=== PATIENT | male | born 1990 | race African-American/Black ===

== ENCOUNTER 2021-09-29 23:38 | Emergency (ER) | payer SELFPAY ==
[~2021-09-29] VITALS: Ht 188 cm; Wt 66.0 kg
[2021-09-30 01:31] VITALS: BP 134/75
== END 2021-09-30 01:32 | disposition home or self-care (01) ==
LOC: ER 23:38
DX: R51.9 Headache, unspecified (principal); R10.9 Unspecified abdominal pain
CPT/HCPCS: 99281